=== PATIENT | male | born 1980 | race Caucasian/White ===

== ENCOUNTER 2017-02-24 13:34 | Emergency (ER) | payer OTHER ==
--- NOTE | 2017-02-24 13:55 | ED Physician Documentation ---
Altered Mental Status - HISTORIAN Historian: patient, other (law enforcement) - HPI Stated Complaint: fit for confinement Chief Complaint: Syncope Additional Information: pt at local restaurant had syncopal like episond-compatible w/ etoh abuse - improved coherent now - good historian alert answers all questions appropriately Onset: hours (1) Duration: sudden onset Last known Well Date: 02/24/17 Last Known Well Time: 12:00 Last known Well Code/Unknown Code: Known (fairly accurately) Character of Altered Mental Status: denies: disoriented, confused, combative, trouble concentrating, unresponsive, seizure activity, decreased responsiveness Context: none, heavy alcohol intake. denies: drug abuse, head injury Cognition is Usually: alert, oriented x3 Gait is Usually: walks w/o assistance Associated Symptoms: none. denies: recent illness, chills, chest pain, neck pain, back pain, trouble breathing, abdominal pain, nausea, vomiting - ROS EYES/ENT: denies: problems with vision CVS/RESP: none GI/: none NEURO/PSYCH: none - PAST HX Past History: none Other History: none Surgeries/Procedures: none Allergies/Adverse Reactions: Allergies Allergy/AdvReac Type Severity Reaction Status Date / Time No Known Drug Allergies Allergy Verified 05/16/16 20:24 Home Medications: Ambulatory Orders Medication Instructions Recorded NK [NK] 05/16/16 - SOCIAL HX Smoking History: greater than 1 pack/day Alcohol Use: heavy Drug Use: none - FAMILY HX Family History: no significant history - VITAL SIGNS Vital Signs: Vital Signs Temp Pulse Resp BP Pulse Ox 97.8 F 76 16 107/81 99 02/24/17 13:35 02/24/17 13:35 02/24/17 13:35 02/24/17 13:35 02/24/17 13:35 - REVIEWED ASSESSMENTS Nursing Assessment Reviewed: Yes Vitals Reviewed: Yes ED Results Lab/Radiology - Orders Orders: ED Orders Category Date Time Status UDS [DRUG SCREEN URINE MEDICAL ONLY] Routine Lab 02/24/17 Ordered Altered Mental Status Physical - Physical Exam General Appearance: mild distress. No: anxious, lethargic, hyperventilating Neuro/Psych: none alert, oriented x3 nml as tested Peripheral Exam: motor nml, sensation nml, reflexes nml HEENT: ELDER, EOM's intact Neck: normal inspection, supple. No: stiff neck, Kernig's Respiratory: no resp distress, chest non-tender, breath sounds normal CVS: reg rate & rhythm Abdomen: non-tender. No: guarding, rebound Skin: warm/dry, normal color. No: cyanosis, diaphoresis, jaundice Extremities: non-tender, normal range of motion, no evidence of injury, no edema Discharge Clincal Impression: ethanol [id number] seizure Referrals: Primary Doctor,No [Primary Care Provider] - 2 Days Home Medications: Ambulatory Orders NK [NK] 05/16/16 Comments: fit for law enforcement confinement Condition: Good Disposition: 01 HOME, SELF-CARE Decision to Admit: NO Decision Time: 13:58
[2017-02-24 14:08] VITALS: BP 120/76
[2017-02-24 18:38] LABS: AMPHETAMINE NEGATIVE ng/mL (<1000); BARBITURATES NEGATIVE ng/mL (<300); CANNABINOIDS NEGATIVE ng/mL (< 50); COCAINE NEGATIVE ng/mL (<150); METHAMPHETAMINE NEGATIVE ng/mL (<1000); METHYLENEDIOXYMETHAMPHETAMINE NEGATIVE ng/mL (<500); MORPHINE NEGATIVE ng/mL (<300)
== END 2017-02-24 14:00 | disposition home or self-care (01) ==
LOC: ED 13:34
DX: R55 Syncope and collapse (principal); F10.10 Alcohol abuse, uncomplicated
CPT/HCPCS: 80377; 99283; G0481

== ENCOUNTER 2017-09-02 11:27 | Emergency (ER) | payer OTHER ==
[2017-09-02 11:46] LABS: BASOPHILS % 0.9 (0.0-1.5); EOSINOPHILS % 1.3 % (0.0-6.8); MEAN CORPUSCULAR HEMOGLOBIN 33.2 pg (28.0-34.0); MEAN CORPUSCULAR VOLUME 97.6 fl (80.0-100.0); MONOCYTES % 4.6 % (0.0-11.0); NEUTROPHILS # 3.5 # k/uL (1.4-7.7)
[2017-09-02 11:51] VITALS: BP 119/78
[2017-09-02] MEDS: THIAMINE HCL 100 MG, MVI, ADULT NO.1 WITH VIT K 10 ML, FOLIC ACID 5 MG in 0.9 % SODIUM ... IV SCH ×4 (11:51)
[2017-09-02] MEDS: FOLIC ACID 5 MG/1 ML ONE (11:53)
[2017-09-02] MEDS: MVI, ADULT NO.1 WITH VIT K 10 ML VIAL IV ONE (11:53)
[2017-09-02] MEDS: 0.9 % SODIUM CHLORIDE 1,000 ML IV ONE ×2 (11:53→12:46)
[2017-09-02] MEDS: THIAMINE HCL 100 MG/ML 2ML VIAL ONE (11:54)
[2017-09-02 12:01] LABS: eGFR (African) > 60; eGFR (Non-African) > 60
--- NOTE | 2017-09-02 12:53 | ED Physician Documentation ---
General Adult - HISTORIAN Historian: patient, paramedics - HPI Stated Complaint: Intoxication Chief Complaint: General Adult Onset: hours Timing: still present Severity: moderate Further Comments: yes (Pt is a 37 yo brought to ER for alcohol intoxication. Pt apparently called 911 himself when he was not feeling well after drinking. Pt was sitting, passed out on the front porch of his mother's house when EMT's arrived. Pt is rouseable. He smells of alcohol. Pt has been here before due to ETOH intoxication. Pt denies the use of other drugs. Pt denies wishing to harm himself or others.) - ROS CONST: other (alcohol intoxication) EYES/ENT: none CVS/RESP: none GI/: none MS/SKIN/LYMPH: none NEURO/PSYCH: other (alcohol intoxication) - PAST HX Past History: other (alcoholism, bipolar d/o) Allergies/Adverse Reactions: Allergies Allergy/AdvReac Type Severity Reaction Status Date / Time No Known Drug Allergies Allergy Verified 09/02/17 11:52 Home Medications: Ambulatory Orders Medication Instructions Recorded NK [NK] 05/16/16 - SOCIAL HX Smoking History: cigarettes Drug Use: cocaine, marijuana, methamphetamines, other (alcohol) - FAMILY HX Family History: Yes (possible alcohol abuse) - VITAL SIGNS Vital Signs: Vital Signs Temp Pulse Resp BP Pulse Ox 97.6 F 88 13 119/78 95 09/02/17 11:27 09/02/17 11:27 09/02/17 11:27 09/02/17 11:27 09/02/17 11:27 - REVIEWED ASSESSMENTS Nursing Assessment Reviewed: Yes Vitals Reviewed: Yes Progress - Progress Progress: banana bag 1 L IVF NS 1.5 L in ER Pt appears alert and oriented after IVF, though ETOH is still elevated Pt d/c'd home, declines social service technician & other offers of assistance. ED Results Lab/Radiology - Lab Results Lab Results: Lab Results 09/02/17 09/02/17 09/02/17 11:40 11:40 11:40 WBC 5.70 K/ul K/ul (4.00-12.00) RBC 4.78 M/ul M/ul (3.90-5.20) Hgb 15.9 g/dL g/dL (12.0-18.0) Hct 46.7 % % (37.0-53.0) MCV 97.6 fl fl (80.0-100.0) MCH 33.2 pg pg (28.0-34.0) MCHC 34.0 g/dL g/dL (30.0-36.0) RDW 13.1 % % (11.3-14.3) Plt Count 178 K/mm3 K/mm3 (130-400) Neut % (Auto) 61.6 % % (39.0-79.0) Lymph % (Auto) 29.2 % % (16.0-50.0) Cataño % (Auto) 4.6 % % (0.0-11.0) Eos % (Auto) 1.3 % % (0.0-6.8) Baso % (Auto) 0.9 (0.0-1.5) Neut # (Auto) 3.5 # k/uL # k/uL (1.4-7.7) Lymph # (Auto) 1.6 # k/uL # k/uL (0.6-4.0) Cataño # (Auto) 0.3 # k/uL # k/uL (0.0-0.9) Eos # (Auto) 0.1 # k/uL # k/uL (0.0-0.6) Baso # (Auto) 0.0 # k/uL # k/uL (0.0-0.5) Reactive Lymphs % 2.3 % % (0.0-5.0) Reactive Lymphs # 0.1 # k/uL # k/uL (0.0-0.8) Sodium 152 mmol/L H mmol/L (136-145) Potassium 4.2 mmol/L mmol/L (3.5-5.1) Chloride 108 mmol/L H mmol/L (98-107) Carbon Dioxide 25 mmol/L mmol/L (22-30) BUN 12 mg/dL mg/dL (9-20) Creatinine 0.70 mg/dL mg/dL (0.66-1.25) Estimated Creat Clear 113 Est GFR ( Amer) > 60 (60 - ) Est GFR (Non-Af Amer) > 60 (60 - ) Glucose 110 mg/dL H mg/dL (74-106) Calcium 9.8 mg/dL mg/dL (8.4-10.2) Total Bilirubin 0.9 mg/dL mg/dL (0.2-1.3) AST 43 U/L U/L (15-46) ALT 50 U/L U/L (13-69) Alkaline Phosphatase 88 U/L U/L (38-126) Total Protein 7.9 g/dL g/dL (6.3-8.2) Albumin 5.1 g/dL H g/dL (3.5-5.0) Ethyl Alcohol 418.0 mg/dL H mg/dL (0.0-10.0) - Orders Orders: ED Orders Category Date Time Status Place IV Lock 1T Care 09/02/17 11:33 Active ALCOHOL MEDICAL USE ONLY Stat Lab 09/02/17 11:40 Completed CBC/PLATELET/DIFF Routine Lab 09/02/17 11:40 Completed CMP Routine Lab 09/02/17 11:40 Completed DRUG SCREEN URINE MEDICAL ONLY Routine Lab 09/02/17 Ordered UA [URINALYSIS] Routine Lab 09/02/17 Ordered 0.9 % Sodium Chloride [Normal Saline] 1,000 ml Med 09/02/17 11:41 Discontinued IV .STK-MED 0.9 % Sodium Chloride [Normal Saline] 1,000 ml Med 09/02/17 12:41 Active IV Q1H Folic Acid [Folvite] Med 09/02/17 11:42 Discontinued 5 mg .ROUTE .STK-MED ONE Mvi, Adult No.1 with Vit K [M.v.i. Adult] Med 09/02/17 11:42 Discontinued 10 ml IV .STK-MED ONE Thiamine HCl Med 09/02/17 11:42 Discontinued 200 mg .ROUTE .STK-MED ONE Thiamine HCl 100 mg Med 09/02/17 12:00 Ordered Mvi, Adult No.1 with Vit K [M.v.i. Adult] 10 ml Folic Acid [Folvite] 5 mg 0.9 % Sodium Chloride [Normal Saline] 1,000 ml IV 1T General Adult Physical Exam - PHYSICAL EXAM GENERAL APPEARANCE: intoxicated EENT: pharynx normal, dry mucous membranes NECK: normal inspection, supple RESPIRATORY: no resp distress, chest non-tender, breath sounds normal CVS: reg rate & rhythm, heart sounds normal ABDOMEN: soft, no organomegaly, normal bowel sounds BACK: normal inspection, no CVA tenderness SKIN: warm/dry, normal color EXTREMITIES: non-tender, normal range of motion, no evidence of injury, no edema NEURO: motor nml, sensation nml, other (alcohol intoxication) Discharge Clincal Impression: Alcohol intoxication Qualifiers: Complication of substance-induced condition: uncomplicated Qualified Code(s): F10.920 - Alcohol use, unspecified with intoxication, uncomplicated Referrals: Primary Doctor,No [Primary Care Provider] - Condition: Stable Disposition: 01 HOME, SELF-CARE Decision to Admit: NO Decision Time: 15:27
[2017-09-02] MEDS: 0.9 % SODIUM CHLORIDE 500 ML IV ONE ×2 (13:41)
[2017-09-03 06:46] LABS: APPEARANCE,URINE CLEAR (CLEAR); COLOR,URINE YELLOW (YELLOW); OCCULT BLOOD,URINE NEGATIVE (NEGATIVE)
[2017-09-03 06:47] LABS: UROBILINOGEN URINE 0.2 Eu (0.2-1.0)
[2017-09-03 06:54] LABS: CANNABINOIDS NEGATIVE ng/mL (< 50); METHYLENEDIOXYMETHAMPHETAMINE NEGATIVE ng/mL (<500)
== END 2017-09-02 15:07 | disposition home or self-care (01) ==
LOC: ED 11:27
DX: F10.129 Alcohol abuse with intoxication, unspecified (principal); F31.9 Bipolar disorder, unspecified
CPT/HCPCS: 80053; 80320; 80377; 81002; 85025; J3411; J3490; J7030; J7060; 96365; 96366; 96367; 99282; 99283; G0480; G0481; S1016

== ENCOUNTER 2017-09-02 23:19 | Emergency (ER) | payer SELFPAY ==
[2017-09-02] MEDS: THIAMINE HCL 100 MG, MVI, ADULT NO.1 WITH VIT K 10 ML, FOLIC ACID 5 MG in 0.9 % SODIUM ... IV SCH ×4 (23:40)
[2017-09-02] MEDS: FOLIC ACID 5 MG/1 ML ONE (23:51)
[2017-09-02] MEDS: THIAMINE HCL 100 MG/ML 2ML VIAL ONE (23:51)
[2017-09-02] MEDS: 0.9 % SODIUM CHLORIDE 1,000 ML IV ONE (23:51)
[2017-09-02] MEDS: MVI, ADULT NO.1 WITH VIT K 10 ML VIAL IV ONE (23:51)
--- NOTE | 2017-09-03 00:36 | ED Physician Documentation ---
General Adult - HISTORIAN Historian: patient - HPI Stated Complaint: FIT FOR CONFINEMENT Chief Complaint: General Adult Additional Information: etoh intoxication Onset: other (all day) Timing: still present Severity: moderate Further Comments: no - ROS CONST: no problems EYES/ENT: none CVS/RESP: none GI/: none MS/SKIN/LYMPH: none NEURO/PSYCH: denies: headache, fainting, dizziness, tingling, numbness, difficulty walking, difficulty with speech, anxiety, depression - PAST HX Past History: none Other History: none Surgeries/Procedures: none Immunizations: referred to PCP Allergies/Adverse Reactions: Allergies Allergy/AdvReac Type Severity Reaction Status Date / Time No Known Drug Allergies Allergy Verified 09/02/17 11:52 Home Medications: Ambulatory Orders Medication Instructions Recorded NK [NK] 05/16/16 - SOCIAL HX Smoking History: cigarettes Alcohol Use: heavy Drug Use: none - FAMILY HX Family History: Yes - VITAL SIGNS Vital Signs: Vital Signs Temp Pulse Resp BP Pulse Ox 98.2 F 87 16 138/103 99 09/02/17 23:19 09/02/17 23:19 09/02/17 23:19 09/02/17 23:19 09/02/17 23:19 - REVIEWED ASSESSMENTS Nursing Assessment Reviewed: Yes Vitals Reviewed: Yes Progress - Results/Orders Results/Orders: etoh level ordered - Progress Progress: pt. given a banana bag in er Critical Care Note - Critical Care Note Total Time (mins): 0 ED Results Lab/Radiology - Lab Results Lab Results: Lab Results 09/02/17 23:58 Ethyl Alcohol 277.8 mg/dL H mg/dL (0.0-10.0) - Radiology Radiology Impressions: none ordered - Orders Orders: ED Orders Category Date Time Status Place IV Lock 1T Care 09/02/17 23:46 Active ALCOHOL MEDICAL USE ONLY Routine Lab 09/02/17 23:58 Completed 0.9 % Sodium Chloride [Normal Saline] 1,000 ml Med 09/02/17 23:32 Discontinued IV .STK-MED Folic Acid [Folvite] Med 09/02/17 23:32 Discontinued 5 mg .ROUTE .STK-MED ONE Mvi, Adult No.1 with Vit K [M.v.i. Adult] Med 09/02/17 23:33 Discontinued 10 ml IV .STK-MED ONE Thiamine HCl Med 09/02/17 23:32 Discontinued 200 mg .ROUTE .STK-MED ONE Thiamine HCl 100 mg Med 09/02/17 23:45 Ordered Mvi, Adult No.1 with Vit K [M.v.i. Adult] 10 ml Folic Acid [Folvite] 5 mg 0.9 % Sodium Chloride [Normal Saline] 1,000 ml IV 1T General Adult Physical Exam - PHYSICAL EXAM GENERAL APPEARANCE: moderate distress EENT: eye inspection normal, ENT inspection normal, pharynx normal, no signs of dehydration, ELDER, no nystagmus, TM's nml NECK: normal inspection, thyroid normal, supple RESPIRATORY: no resp distress, chest non-tender, breath sounds normal CVS: reg rate & rhythm, heart sounds normal, equal pulses, no murmur, no gallop , PMI nml, no JVD ABDOMEN: soft, no organomegaly, normal bowel sounds, no abdominal bruit, no distension BACK: normal inspection, no CVA tenderness SKIN: warm/dry, normal color EXTREMITIES: non-tender, normal range of motion, no evidence of injury, no edema NEURO: oriented X3, CN's nml as tested, motor nml, sensation nml, mood/affect nml, cognition normal Discharge Clincal Impression: Alcohol intoxication Qualifiers: Complication of substance-induced condition: uncomplicated Qualified Code(s): F10.920 - Alcohol use, unspecified with intoxication, uncomplicated Referrals: Primary Doctor,No [Primary Care Provider] - 2 Days Comments: Discharged in stable condition into care of police. Condition: Stable Disposition: 01 HOME, SELF-CARE Decision to Admit: NO Decision Time: 00:35
[2017-09-03 01:04] VITALS: BP 125/92
== END 2017-09-03 00:40 | disposition home or self-care (01) ==
LOC: ED 23:19
DX: F10.920 Alcohol use, unspecified with intoxication, uncomplicated (principal); Z02.89 Encounter for other administrative examinations
CPT/HCPCS: 80320; J3411; J3490; J7030; 96365; 99282; G0480; S1016